=== PATIENT | male | born 1995 | race Caucasian/White ===

== ENCOUNTER 2020-03-25 16:39 | Emergency (ER) | payer MEDICAID, SELFPAY ==
[2020-03-25 16:48] VITALS: BP 138/72; PULSE 72; RESP 18; TEMP 36.5; O2SAT 95
--- NOTE | 2020-03-25 17:01 | W.ED.GENAD ---
Discharge Plan Disposition Patient Disposition: HOME Condition: Improving Discharge Details Clinical Impression: Spasm of thoracic back muscle Primary Care Provider: Unknown,Unknown ED Provider: Steve Cochran Home Meds and New Rx's Prescriptions: New methocarbamol [Robaxin-750] 750 mg tablet 750 mg PO TID Qty: 10 RF: 0 Discharge Instructions Instructions: Muscle Spasm (ED) Additional Instructions: Remove Lidoderm patch in 12 hours time. Additional patches are available [id number]. Methocarbamol 750 every 6 hours tonight as needed. Then may fill prescription. Liberally hydrate so that you maintain good hydration. May gently massage the area as we discussed. Return if you develop a fever, difficulty breathing, cough or any other acute concerns. Medical Decision Making 24-year-old male presents from home stating he woke up this morning with right back pain that was worse with movement. He did not have shortness of breath, fever, or rash. He is otherwise been well and denies injury. He is tender along the right posterior thoracic musculature with mild spasm present. Differential diagnosis includes muscle spasm, pneumothorax, occult pneumonia, must exclude renal colic. Patient referred for x-ray and urinalysis. Chest x-ray is unremarkable and no acute process seen. Urinalysis with small amount of leuk esterase, otherwise negative, appears contaminated. Patient is asymptomatic and no history consistent with urinary tract infection. We will treat for muscular spasm of the thoracic back. He is given Lidoderm patch as well as methocarbamol. He is stable for outpatient management. HPI General Mode of arrival: EMS. Date/Time Provider Initiated Documentation: 03/25/20 16:40. Limitations to Documentation: no limitations. Information obtained by: patient and EMS. History of Present Illness 24 year old M presents to the emergency department with the chief complaint of Right posterior thoracic pain beginning this morning, described as moderate, Quality is described as dull and constant, and is localized to the chest, back and right. Patient reports no radiation. Patient started experiencing this hour(s) and it has been constant. No relieving factors improve symptom(s), No exacerbating factors reported . Patient notes denies chest pain, cough, rash, shortness of breath and syncope. Patient did receive the following treatments prior to arrival, NSAID Related Data Home Medications Medication Instructions Recorded Confirmed methocarbamol [Robaxin-750] 750 mg PO TID #10 tab 03/25/20 Previous Rx's Medication Instructions Recorded methocarbamol [Robaxin-750] 750 mg PO TID #10 tab 03/25/20 Allergies Allergy/AdvReac Type Severity Reaction Status Date / Time Penicillins AdvReac Mild vomiting Unverified 03/25/20 16:53 Sulfa (Sulfonamide AdvReac Mild vomiting Unverified 03/25/20 16:53 Antibiotics) General Stated Complaint: Nk/Back Pain CESAR: 3 Review of Systems Narrative: No recent cough or illness. No shortness of breath. No rash. No fall or injury. 6 systems reviewed and otherwise negative [facility] Social History Smoking/Tobacco Use Status: Former Tobacco Use Smoking risk assessment performed?: Yes Alcohol Intake: current Alcohol Intake frequency: a few times a month Drug use: Daily Substance use type: marijuana Current gender identity: male Do you feel safe at home: Yes Do you feel safe in your relationship?: Yes Exam Narrative Exam Narrative: GEN: awake, alert, oriented 3. Pleasant, well groomed, interactive. HEAD: Normocephalic, atraumatic ENT: Mucous membranes moist, oropharynx unremarkable, External ear exam unremarkable EYES: PERRL, EOMI NECK: Full ROM, no ELIZABETH, no menigismus CHEST/RESP: Right posterior thoracic cage/thoracic paraspinous musculature on the right is tender to palpation with spasm present, clear to auscultation bilateral, no wheeze/rhonchi/rales Back: No midline step-off or deformity. CARDIOVASCULAR: RRR, no murmur, rub stone. 2+ Rad pulse bilateral ABDOMEN: Soft, nontender, no mass. +Bowel sounds EXT: Full ROM, no edema, no rash Neuro: Grossly normal neurologic exam, conversant, interactive. Psych: Speech fluent, thoughts congruent, affect normal Course Vital Signs Vital signs: Vital Signs Temperature 36.5 C 03/25/20 16:48 Pulse 72 03/25/20 16:48 Respiratory Rate 18 03/25/20 16:48 Blood Pressure 138/72 03/25/20 16:48 Pulse Oximetry 95 03/25/20 16:48 Temperature 36.5 C 03/25/20 16:48 Temperature Source Skin 03/25/20 16:48 Pulse 72 03/25/20 16:48 Respiratory Rate 18 03/25/20 16:48 Respiratory Effort 03/25/20 16:54 Blood Pressure 138/72 03/25/20 16:48 Blood Pressure Position Sitting 03/25/20 16:48 Pulse Oximetry 95 03/25/20 16:48 Oxygen Delivery Method Room Air 03/25/20 16:48 Oxygen Flow Rate 0 03/25/20 16:48 Pain Level 5 03/25/20 16:56
[2020-03-25 17:15] LABS: Bilirubin Negative (Negative); Blood Negative (Negative); Clarity Clear (Clear); Glucose Negative (Negative); Ketones Negative (Negative); Leukocyte Esterase Small (Negative); Nitrite Negative (Negative); Urobilinogen 0.2 EU/dL (Up TO 0.2)
--- NOTE | 2020-03-25 17:22 | DI.RAD_ITS ---
EXAM: XR RIBS RT W PA LAT CHEST CLINICAL HISTORY: R posterior pain TECHNIQUE: 2D digital imaging was performed. COMPARISON: No exams were available for comparison FINDINGS: MEDIASTINUM: Normal. HEART: Normal. PULMONARY VASCULATURE: Normal. LUNGS: Clear. PLEURAL SPACE: No pleural effusion or pneumothorax. BONE:Normal. RIGHT RIBS: Normal. OTHER FINDINGS:Normal. IMPRESSION: 1. No acute pulmonary findings. 2. Unremarkable right ribs. DATA REPOSITORY: RADIATION DOSE DELIVERED:
--- NOTE | 2020-03-25 17:35 | DI.VRAD_ITS ---
PROCEDURE INFORMATION: Exam: XR Right Ribs Exam date and time: 03/25/2020 5:25 PM Age: 24 years old Clinical indication: Chest wall pain; Right; Patient HX: No known trauma patient sts woke up this morning with back and rib pain. TECHNIQUE: Imaging protocol: XR Right ribs. Views: 2 views. COMPARISON: No relevant prior studies available. FINDINGS: No acute abnormality or aggressive osseous lesion. There is no significant soft tissue swelling. IMPRESSION: Negative for acute skeletal pathology. PROCEDURE INFORMATION: Exam: XR Chest, 2 Views Exam date and time: 03/25/2020 5:25 PM Age: 24 years old Clinical indication: Chest wall pain; Right; Patient HX: No known trauma patient sts woke up this morning with back and rib pain. TECHNIQUE: Imaging protocol: XR of the chest Views: 2 views. COMPARISON: No relevant prior studies available. FINDINGS: Lungs are clear. No pleural effusions or pneumothorax. Cardiomediastinal silhouette is magnified due to technique. The airways are patent. No acute abnormality or aggressive osseous lesion. IMPRESSION: Negative for acute thoracic pathology. Dictated and Authenticated by: Nils Levine MD. Ordering:DANYELL Wilson MD
[2020-03-25 17:49] LABS: Bacteria Few HPF (Negative); C & S Indicated? No/Sq. Contamination; Casts Negative LPF (Negative); Crystals Negative HPF (Negative); Epithelial Cells Moderate HPF (Negative); Mucus Moderate (Negative); WBC >50 HPF (0-5)
[2020-03-25] MEDS: Methocarbamol 750 MG TAB 1500 MG PO (17:54)
[2020-03-25] MEDS: Lidocaine 5% Patch 1 PATCH TP (17:54)
[2020-03-25 17:57] VITALS: BP 146/74; PULSE 74; RESP 16; TEMP 36.6; O2SAT 97
== END 2020-03-25 17:58 | disposition home or self-care (01) ==
PROVIDERS: Emergency Provider Emergency Medicine
DX: M62.830 Muscle spasm of back (principal)
CPT/HCPCS: 99283; 71046; 71100; 81003; 81015; 99284

== ENCOUNTER 2021-04-20 01:52 | Outpatient (CLI) | payer MEDICAID, SELFPAY ==
[2021-04-20 14:15] LABS: HCT 50.4 % (40.0-50.0); HGB 16.3 g/dL (13.5-17.5); MCH 27.4 pg (27.0-33.0); MCHC 32.3 % (32.0-36.0); MCV 84.8 fL (80-95); MPV 10.5 fL (8.0-11.0); Platelet Count 315 10^3/uL (130-400); RBC 5.94 10^6/uL (4.36-5.78); WBC 11.09 10^3/uL (4.4-10.8)
[2021-04-20 16:48] LABS: ALT 53 U/L (16-63); AST 23 U/L (15-37); Albumin 3.9 g/dL (3.4-5.0); Alkaline Phosphatase 81 U/L (46-116); Anion Gap 10.1 mmol/L (3-11); BUN 9 mg/dL (7-18); Bilirubin, Total 0.7 mg/dL (0.2-1.0); CO2 27.9 mmol/L (21.0-32.0); CREATININE 0.7 mg/dL (0.70-1.30); Calculated LDL 92 mg/dL (<100); Chloride 103 mmol/L (98-107); Cholesterol 147 mg/dL (<200); Glucose 111 mg/dL (74-106); HDL Cholesterol 30 mg/dL (40-60); Potassium 4.2 mmol/L (3.5-5.1); Sodium 141 mmol/L (136-145); TSH (W/Ref FT4) 2.93 uIU/mL (0.36-3.74); Total Protein 7.9 g/dL (6.4-8.2); Triglyceride 127 mg/dL (<150); Vitamin B12 740 pg/mL (193-986)
[2021-04-25 11:03] LABS: IgA 224 mg/dL (85-499); Interpretation (See Note); Tissue Transglutaminase IgA <1.2 U/mL (<4.0)
== END 2021-04-20 01:53 | disposition home or self-care (01) ==
PROVIDERS: Visit Provider Family Medicine
DX: R11.2 Nausea with vomiting, unspecified (principal); K21.9 Gastro-esophageal reflux disease without esophagitis; Z13.220 Encounter for screening for lipoid disorders
CPT/HCPCS: 36415; 80053; 80061; 82784; 83516; 85027; 82607; 84443